=== PATIENT | female | born 1990 | race Caucasian/White ===

== ENCOUNTER 2018-10-01 10:35 | Emergency (ER) | payer BC ==
[2018-10-01 10:47] VITALS: TEMP 97.5
[2018-10-01] MEDS ORDERED: HYDROcodone/APAP 5-325MG 1 EACH TAB PO STA (11:11)
--- NOTE | 2018-10-01 11:28 | ED ---
General Adult HPI <Roman Bullard - Last Filed: 10/01/18 14:09> - General Source: patient, RN notes reviewed Mode of arrival: ambulatory Limitations: no limitations <Rhett Madirgal - Last Filed: 10/01/18 14:37> - General Chief complaint: Extremity Injury, Lower Stated complaint: rt leg/ankle injury Time Seen by Provider: 10/01/18 10:59 - History of Present Illness Initial comments: Patient is a 28-year-old female presenting to the emergency room today with a chief complaint of an injury to the right ankle. She does admit that occurred just prior to arrival. She was stepping out of the car and there was a patch of ice that she slipped twisting the right ankle. Patient denies any head injury or loss consciousness. Denies any other complaints. Patient denies any recent fever, chills, shortness of breath, chest pain, back pain, abdominal pain , headaches or visual changes, or any other complaints. (Rhett Madrigal) - Related Data Home Medications Medication Instructions Recorded Confirmed Apixaban [Eliquis] 5 mg PO BID 10/01/18 10/01/18 Cyclobenzaprine [Flexeril] 5 mg PO HS 10/01/18 10/01/18 DULoxetine HCL [Cymbalta] 20 mg PO HS 10/01/18 10/01/18 Previous Rx's Medication Instructions Recorded Hydrocodone/Acetaminophen [[place] 1 each PO Q6HR PRN #12 tab 10/01/18 5-325] Allergies Allergy/AdvReac Type Severity Reaction Status Date / Time No Known Allergies Allergy Verified 10/01/18 11:01 Review of Systems ROS Other: All systems not noted in ROS Statement are negative. <Roman Bullard - Last Filed: 10/01/18 14:09> ROS Other: All systems not noted in ROS Statement are negative. <Rhett Madrigal - Last Filed: 10/01/18 14:37> ROS Statement: Those systems with pertinent positive or pertinent negative responses have been documented in the HPI. Past Medical History Additional Past Medical History / Comment(s): Blood clot in abd. History of Any Multi-Drug Resistant Organisms: None Reported Past Surgical History: Coronary Bypass/CABG Additional Past Surgical History / Comment(s): IVC filter. Past Psychological History: No Psychological Hx Reported Smoking Status: Never smoker Past Alcohol Use History: None Reported Past Drug Use History: None Reported <Rhett Madrigal - Last Filed: 10/01/18 14:37> General Exam <Roman Bullard - Last Filed: 10/01/18 14:09> Limitations: no limitations <Rhett Madrigal - Last Filed: 10/01/18 14:37> - General Exam Comments Initial Comments: General: The patient is awake and alert, in no distress, and does not appear acutely ill. Musculoskeletal: Patient does have tenderness over the lateral malleolus of the right ankle. Mild tenderness down into the right foot over the fourth and fifth proximal metatarsal. No tenderness to the right knee. Sensations intact. Pedal pulse 2+. Neurological: A&O x 3. CN II-XII intact, There are no obvious motor or sensory deficits. Coordination appears grossly intact. Speech is normal. Skin: Skin is warm and dry and no rashes or lesions are noted. Psychiatric: Normal mood and affect. (Rhett Madrigal) Course <Roman Bullard - Last Filed: 10/01/18 14:09> <Rhett Madrigal - Last Filed: 10/01/18 14:37> Vital Signs 10/01/18 10:43 Temperature 97.5 F L Pulse Rate 93 Respiratory 22 Rate Blood Pressure 161/81 O2 Sat by Pulse 99 Oximetry - Reevaluation(s) Reevaluation #1: 10/01/18 14:09 PA supervision: I proceeded [id number] evaluation the patient the patient did sustain a right ankle injury with a trimalleolar fracture as per computed tomography scan and x-rays. The case was discussed with Dr. Kenny. Patient be splinted and sent home with follow-up next week. I do agree with the assessment and plan (Roman Bullard) Medical Decision Making <Roman Bullard - Last Filed: 10/01/18 14:09> <Rhett Madrigal - Last Filed: 10/01/18 14:37> - Medical Decision Making CT the left ankle does show a comminuted displaced trimalleolar fracture of the ankle with extensive soft tissue edema. Also small amount of air within the soft tissue. There is no open wound. Case discussed and seen by attending physician Dr. Bullard. Discuss case with on-call orthopedic physician bilingual office assistant Sofi who discussed it with Dr. Kenny who did see images. They recommend a short leg OCL splint and following up in the office this coming Thursday/Thursday. Patient provided his coffee of imaging. Advised following up with orthopedics. Advised ice elevate. Advised to stay nonweightbearing and use crutches. Will be given a short prescription of [place]. An opiate start talking form was filled out and discussed. Patient is advised to Return for any other concerns. (Rhett Madrigal) Disposition <Roman Bullard - Last Filed: 10/01/18 14:09> Is patient prescribed a controlled substance at d/c from ED?: No Time of Disposition: 14:37 <Rhett Madrigal - Last Filed: 10/01/18 14:37> Clinical Impression: Trimalleolar fracture of ankle, closed Disposition: HOME SELF-CARE Condition: Good Instructions: Ankle Fracture (ED) Additional Instructions: Please follow-up with orthopedics this coming Thursday/Thursday as discussed. Please see splinted in place until follow-up appointment. Use crutches with nonweightbearing. Please continue to ice elevate the affected area. Return to emergency room for any other concerns. Prescriptions: Hydrocodone/Acetaminophen [[place] 5-325] 1 each PO Q6HR PRN #12 tab PRN Reason: Pain Referrals: Hal Mayen DO [Primary Care Provider] - 1-2 days Wale Kenny MD [Medical Doctor] - 1-2 days
--- NOTE | 2018-10-01 11:41 | XR ---
EXAMINATION TYPE: XR foot complete RT, XR ankle complete RT DATE OF EXAM: 10/01/2018 CLINICAL HISTORY: Slip and fall on ice with subsequent right foot and ankle pain TECHNIQUE: Frontal, lateral and oblique images of the right ankle and foot are obtained. COMPARISON: None. FINDINGS: There is a comminuted distal fibular fracture with 4 mm medial displacement of the distal f racture fragment and approximately 8 mm foreshortening. There is an impacted tibial distal metaphysea l fracture with approximately 1.9 cm of foreshortening there is also posterior malleolus fracture [place] t is minimally comminuted with 8 mm of distraction. Overlying soft tissue swelling is seen. No evidence of acute fracture or dislocation is seen of the right foot. Midfoot and hindfoot soft tis elisabet swelling is noted. IMPRESSION: Trimalleolar fracture the right ankle with overlying soft tissue swelling as described ab marleen.
[2018-10-01] MEDS ORDERED: HYDROmorphone 1 MG/ML 1 ML SYRINGE IM STA ×2 (11:50→14:31)
[2018-10-01] MEDS ORDERED: ONDANSETRON 4 MG/2 ML VIAL IVP STA (11:50)
[2018-10-01] MEDS ORDERED: ONDANSETRON ODT 4 MG TAB PO STA (12:23)
--- NOTE | 2018-10-01 12:27 | XR ---
EXAMINATION TYPE: XR tibia fibula RT DATE OF EXAM: 10/01/2018 CLINICAL HISTORY: Fall on ice with subsequent right lower extremity pain TECHNIQUE: Two views of the right leg are obtained. COMPARISON: None. FINDINGS: There is no acute fracture or dislocation seen in the right proximal tibia or fibula. The right knee joint appear within normal limits. The overlying soft tissue appears unremarkable. IMPRESSION: There is no acute fracture or dislocation seen in the proximal right tibia or fibula.
--- NOTE | 2018-10-01 13:10 | CT ---
EXAMINATION TYPE: CT lower leg RT wo con DATE OF EXAM: 10/01/2018 COMPARISON: 10/01/2018 x-ray HISTORY: Right ankle fx CT DLP: 139.2 mGycm Automated exposure control for dose reduction was used. FINDINGS: There is a displaced comminuted fracture involving the medial malleolus. Fracture of the posterior ma rgin of the tibia also noted. Fracture line also noted along the anterior margin of the distal tibia. There is soft tissue edema and emphysema. There is a displaced comminuted fracture of the distal fibu la. Findings are compatible with a trimalleolar fracture. There appears to be distortion of the ankle mortise. There is extensive soft tissue edema. Air is also incidentally noted within the soft tissues and shou ld be correlated clinically. Vascular structures are not as well identified without contrast. IMPRESSION: COMMINUTED DISPLACED TRIMALLEOLAR FRACTURE OF THE ANKLE WITH EXTENSIVE SOFT TISSUE EDEMA. THERE ALSO ARE A SMALL AMOUNT OF AIR WITHIN THE SOFT TISSUES WHICH SHOULD BE CORRELATED CLINICALLY. THERE ALS O IS DISTORTION OF THE ANKLE MORTISE.
[2018-10-01 14:56] VITALS: BP 126/78; PULSE 78; RESP 16
== END 2018-10-01 14:54 | disposition home or self-care (01) ==
LOC: EC 10:35
DX: S82.851A Displaced trimalleolar fracture of right lower leg, initial encounter for closed fracture (principal); Z79.01 Long term (current) use of anticoagulants; Z79.899 Other long term (current) drug therapy; Z95.1 Presence of aortocoronary bypass graft; W00.0XXA Fall on same level due to ice and snow, initial encounter; Y92.009 Unspecified place in unspecified non-institutional (private) residence as the place of occurrence of the external cause
CPT/HCPCS: 73590; 73610; 73630; 73700; 99284; 29515; 96372 ×2; J1170